=== PATIENT | female | born 1940 | race Caucasian/White ===

== ENCOUNTER → 2017-11-30 | Outpatient (CLI) | payer OTHER | LOC: ULTRA 10:45 | DX: N28.1 Cyst of kidney, acquired (principal) ==

== ENCOUNTER → 2017-12-07 | Outpatient (CLI) | payer OTHER ==
[2017-12-07 13:24] LABS: CREATININE 0.7 mg/dL (0.6-1.0)
== END ==
LOC: CAT 07:16
PROVIDERS: Internal Medicine Pulmonary Disease
DX: N20.0 Calculus of kidney (principal); N28.89 Other specified disorders of kidney and ureter; M47.896 Other spondylosis, lumbar region; M43.26 Fusion of spine, lumbar region

== ENCOUNTER → 2019-11-30 | Outpatient (CLI) | payer OTHER | LOC: RAD 13:49 | DX: J98.4 Other disorders of lung (principal); I70.0 Atherosclerosis of aorta; J44.9 Chronic obstructive pulmonary disease, unspecified ==

== ENCOUNTER → 2020-02-29 | Outpatient (CLI) | payer OTHER | LOC: LAB 11:21 | PROVIDERS: ATTEND Internal Medicine | DX: Z20.828 Contact with and (suspected) exposure to other viral communicable diseases (principal) ==